=== PATIENT | male | born 1960 | race Caucasian/White ===

== ENCOUNTER 2024-10-27 06:21 | Inpatient (IN) | payer MEDICARE, OTHER ==
[~2024-10-27] VITALS: Ht 162.6 cm; Wt 70.3 kg
[2024-10-27] MEDS ORDERED: LIDOCAINE 2%-EPI 1:100,000 30 ML VIAL ONE (06:53)
[2024-10-27] MEDS ORDERED: ANESTHESIA TRAY IN PYXIS 1 EA TRAY MC ONE (06:53)
[2024-10-27] MEDS ORDERED: dexaMETHasone SOD PHOSPHATE 2 ML ONE (06:54)
[2024-10-27] MEDS ORDERED: VANCOMYCIN 1 GM VIAL ONE (06:54)
[2024-10-27] MEDS ORDERED: FAMOTIDINE/PF INJ 20 MG/2 ML VIAL IV ONE (06:57)
[2024-10-27] MEDS ORDERED: FENTANYL PF 100MCG/2ML AMPUL ONE ×3 (06:57→10:36)
[2024-10-27] MEDS ORDERED: ROCURONIUM BROMIDE 50 MG/5 ML ONE (06:57)
[2024-10-27] MEDS ORDERED: SUGAMMADEX SODIUM 200 MG/2 ML VIAL IV ONE (06:58)
[2024-10-27] MEDS ORDERED: OXYMETAZOLINE HCL NASAL SPRAY 30 ML BOTTLE NS ONE (07:04)
[2024-10-27] MEDS ORDERED: ONDANSETRON HCL/PF 4 MG/2 ML VIAL IVP PRN (12:00)
[2024-10-27] MEDS ORDERED: ACETAMINOPHEN 325 MG TABLET PO PRN (12:00)
[2024-10-27] MEDS: HYDROMORPHONE 1 MG/1 ML DISP.SYRIN IV PRN (12:27)
[2024-10-27] MEDS: IV NS 0.9% 1,000 ML IV SCH (12:44)
[2024-10-27] MEDS ORDERED: HYDR-3980 PO (13:00)
[2024-10-27] MEDS ORDERED: CLIN300C12 PO (13:00)
[2024-10-27] MEDS ORDERED: PHOS250T5 PO (13:00)
[2024-10-27] MEDS ORDERED: AMLO-213 PO (13:00)
[2024-10-27] MEDS ORDERED: ATOR40TA PO (13:00)
[2024-10-27] MEDS ORDERED: FOLI0.4T6 PO (13:00)
[2024-10-27] MEDS ORDERED: OMEP20CA15 PO (13:00)
[2024-10-27] MEDS ORDERED: GABA300C PO (13:00)
[2024-10-27 15:19] VITALS: BP 150/89; TEMP 98.3; O2SAT 99
[2024-10-27] MEDS: VANCOMYCIN 1 GM in IV D5W 250ml IV SCH (19:36)
[2024-10-27 20:20] VITALS: BP 132/78; TEMP 98.1; O2SAT 98
[2024-10-28 08:00] VITALS: BP 134/84; TEMP 98.2; O2SAT 98
[2024-10-28] MEDS ORDERED: IV NS 0.9% 1,000 ML IV PRN (08:02)
== END 2024-10-28 16:16 | disposition home or self-care (01) | DRG 141 ==
LOC: DS 06:21 → MED 11:55
PROC: 0N5R0ZZ Destruction of Maxilla, Open Approach (ICD-10-PCS; 2024-10-27)
PROC: 0NUR07Z Supplement Maxilla with Autologous Tissue Substitute, Open Approach (ICD-10-PCS; 2024-10-27)
PROC: 0NUT07Z Supplement Right Mandible with Autologous Tissue Substitute, Open Approach (ICD-10-PCS; 2024-10-27)
PROC: 09UQ07Z Supplement Right Maxillary Sinus with Autologous Tissue Substitute, Open Approach (ICD-10-PCS; 2024-10-27)
PROC: 0NSV04Z Reposition Left Mandible with Internal Fixation Device, Open Approach (ICD-10-PCS; 2024-10-27)
PROC: 0NST04Z Reposition Right Mandible with Internal Fixation Device, Open Approach (ICD-10-PCS; 2024-10-27)
PROC: 09UR07Z Supplement Left Maxillary Sinus with Autologous Tissue Substitute, Open Approach (ICD-10-PCS; 2024-10-27)
PROC: 0NUV07Z Supplement Left Mandible with Autologous Tissue Substitute, Open Approach (ICD-10-PCS; 2024-10-27)
PROC: 0NSR04Z Reposition Maxilla with Internal Fixation Device, Open Approach (ICD-10-PCS; principal; 2024-10-27 07:30)
DX: S02.40DB Maxillary fracture, left side, initial encounter for open fracture (principal); T81.83XA Persistent postprocedural fistula, initial encounter; M27.2 Inflammatory conditions of jaws; S02.40CB Maxillary fracture, right side, initial encounter for open fracture; S02.69XB Fracture of mandible of other specified site, initial encounter for open fracture; E11.9 Type 2 diabetes mellitus without complications; E78.5 Hyperlipidemia, unspecified; I10 Essential (primary) hypertension; Z88.0 Allergy status to penicillin; Z91.041 Radiographic dye allergy status; D16.5 Benign neoplasm of lower jaw bone; X58.XXXA Exposure to other specified factors, initial encounter; Y93.9 Activity, unspecified; Y92.009 Unspecified place in unspecified non-institutional (private) residence as the place of occurrence of the external cause; K13.79 Other lesions of oral mucosa; J32.0 Chronic maxillary sinusitis
CPT/HCPCS: 82962-TC; 88305-TC; 88311-TC; A4223; A4338; C1713; G0378; J0330; J1100; J1171; J1308; J2405; J2704; J2765; J3010; J3373; J3490; J7030; J7050; J7060